=== PATIENT | female | born 1965 | race Caucasian/White ===

== ENCOUNTER 2019-12-06 12:14 | Emergency (ER) | payer BC ==
--- OUTSIDE RECORDS SUMMARY | 2019-12-06 12:27 | XMS REPORT | Continuity of Care Document ---
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 [phone] Medicine Problems Description No Information Available Social History Type Date Description Comments Sex Unknown Tobacco Use Start: Unknown Never Smoked Cigarettes Smoking Status Reviewed: 12/04/19 Never Smoked Cigarettes ETOH Use Occasionally consumed beer in the past ETOH Use Occasionally consumed liquor in the past Tobacco Use Start: Unknown Patient has never smoked Recreational Drug Use Never Used Drugs Exercise Type/Frequency Exercises regularly Walking Allergies, Adverse Reactions, Alerts Active Allergies Reaction Severity Comments Date 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00 lb Heart Rate 84 /min BP Systolic 132 mmHg BP Diastolic 88 mmHg O2 % BldC Oximetry 99 % BMI (Body Mass Index) 44.4 kg/m2 Neck Circumference in inches 18.25 11/06/2019 1:38pm Height 65 inches 5'5" Weight 267.75 lb shoes Heart Rate 60 /min BP Systolic 126 mmHg LA BP Diastolic 80 mmHg LA BP Systolic Sitting 118 mmHg Ra BP Diastolic Sitting 80 mmHg Ra BP Systolic Standing 110 mmHg Ra BP Diastolic Standing 76 mmHg Ra BMI (Body Mass Index) 44.6 kg/m2 Ejection Fraction NONE Results Description No Information Available Procedures Date Code Description Status 11/19/2019 90205 ECHO Transthoracic, Real-Time 2D With Doppler And Color Completed Flow 11/19/2019 92028 ECHO Transthoracic, Real-Time 2D With Doppler And Color Completed Flow 11/06/2019 09330 EKG Tracing & Interpretation Completed Medical Devices Description No Information Available Encounters Type Date Location Provider Dx Diagnosis Office Visit 12/04/2019 [facility] G47.33 Obstructive sleep 8:[facility]a [facility] Lis[facility] 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 tachycardia R00.2 Palpitations Assessments Date Code Description Provider 12/04/2019 G47.33 Obstructive sleep apnea (adult) (pediatric) Peg Childers MD 11/19/2019 I47.1 Supraventricular tachycardia Jordon Miranda M.D. 11/19/2019 I47.1 Supraventricular tachycardia Traveling ECHO 1 11/06/2019 I47.1 Paroxysmal supraventricular tachycardia Jordon Miranda M.D. 11/06/2019 R00.2 Palpitations Jordon Miranda M.D. Plan of Treatment 12/04/2019 - Peg Childers MDG47.33 Obstructive sleep apnea (adult) (pediatric )Follow up:3 months Functional Status Description No Information Available Mental Status Description No Information Available Referrals Description No Information Available
--- OUTSIDE RECORDS SUMMARY | 2019-12-06 12:27 | XMS REPORT | Summary of Care ---
:1965 Author Organization [facility] Address [address] [address] Care Team Providers Name Role Phone Malini Terrell MD Primary Care Provider Reason for Referral Refer to Department Only (Routine) Status Reason Specialty Diagnoses / Referred By Referred To Procedures Contact Contact Pending Review Physical Therapy Diagnoses S/P left knee arthroscopy Maylin Barr RPA-C [address] [facility] [place] [address] [place] [address] Reason for Visit Reason Comments Surgical Followup LKS Encounter Details Date Type Department Care Team Description 11/12/2019 Office Visit [facility] - Maylin Barr, S/P left knee [place] RPA-C arthroscopy (Primary [address] [facility] [address] [facility] Dx) [place] [address] [place] [address] [phone] Allergies Active Allergy Reactions Severity Noted Date Comments Latex Rash 10/15/2019 Sulfa Antibiotics Hives 09/17/2019 documented as of this encounter (statuses as of 11/12/2019) Medications Medication Sig Dispensed Refills Start Date End Date Status levothyroxine Take by mouth 0 Active (SYNTHROID) 137 MCG Oral BEFORE Tab BREAKFAST. Aspirin (SB LOW DOSE ASA Take by mouth. 0 Active EC) 81 MG Oral Tab EC pantoprazole (PROTONIX) Take 20 mg by 0 Active 20 MG Oral Tab EC mouth DAILY. Multiple Take by mouth. 0 Active Vitamins-Minerals (MULTIVITAMIN ADULT PO) citalopram (CELEXA) 20 Take 20 mg by 0 Active MG Oral Tab mouth. Acetaminophen (TYLENOL Take by mouth. 0 Active ARTHRITIS PAIN PO) Nerve Stimulator (CLEVER by Does not 0 Active CHOICE TENS UNIT) Does apply route. not apply Device HYDROcodone-acetaminophe Take 1 Tab by 16 Tab 0 10/15/2019 Active n (NORCO) 5-325 MG Oral mouth EVERY SIX Tab HOURS NEEDED (pain). Max Daily Amount: 4 Tabs. documented as of this encounter (statuses as of 11/12/2019) Active Problems Problem Noted Date S/P left knee arthroscopy 11/12/2019 Traumatic tear of medial meniscus of left knee 10/07/2019 Overview: Added automatically from request for surgery [id number] documented as of this encounter (statuses as of 11/12/2019) Social History Tobacco Use Types Packs/Day Years Used Date Never Smoker Smokeless Tobacco: Never Used Sex Assigned at Date Recorded Not on file Job Start Date Occupation Industry Not on file Not on file Not on file Travel History Travel Start Travel End No recent travel history available. documented as of this encounter Last Filed Vital Signs Vital Sign Reading Time Taken Comments Blood Pressure 119/81 11/12/2019 1:42 PM EST Pulse - - Temperature - - Respiratory Rate 16 11/12/2019 1:42 PM EST Oxygen Saturation - - Inhaled Oxygen Concentration - - Weight 121.6 kg (268 lb) 11/12/2019 1:42 PM EST Height 165.1 cm (5' 5") 11/12/2019 1:42 PM EST Body Mass Index 44.6 11/12/2019 1:42 PM EST documented in this encounter Progress Notes Maylin Barr, STEVIE-C - 11/12/2019 2:00 PM EST Name: Criss Dunne : 1965 Date of Service: 11/12/2019 CHIEF COMPLAINT: Chief Complaint Patient presents with Surgical Followup LKS HPI: Criss Dunne is a 54-y.o. female who presents to the office today for 1st postop s/p left knee arthroscopy that was done by Dr. Traylor. States doing well. Had to go to the ER for tightness in her thigh.Did a doppler And it showed A superficial thrombus.. PHYSICAL EXAM: BP 119/81 Resp 16 Ht 5' 5" (1.651 m) Wt 268 lb (121.6 kg) BMI 44.6 kg/m2 On exam the left knee incisions are healing well. Sutures were removed and steri -strips were applied. She has 0 degree extension and 100 degree of flexion. The calf is soft and non tender to palpation. Negative hohmans. NV intact to the left lower extremity. She is moving the ankle without difficulty. She is walking with an antalgic gait. ASSESSMENT: ICD-9-CM ICD-10-CM 1. S/P left knee arthroscopy V45.89 Z98.890 REFER TO PHYSICAL THERAPY / REHAB PLAN: Patient was given a referral for physical therapy and home exercise program. Patient will follow up in 2 weeks for reevaluation. Patient will not return to work Author: TANK Oliver 11/12/2019 14:12 documented in this encounter Plan of Treatment Date Type Specialty Care Team Description 11/26/2019 Office Visit Orthopedics Maylin Barr RPA-C [address] [place] [address] [phone] Name Type Priority Associated Diagnoses Order Schedule REFER TO PHYSICAL Referral Routine S/P left knee 99 Occurrences starting THERAPY / REHAB arthroscopy 11/12/2019 until 11/12/2020 Health Maintenance Due Date Last Done Comments DTaP/Tdap/Td Vaccines (1 - Tdap) 1976 DEPRESSION SCREENING 1977 HIV SCREENING 1980 DIABETES SCREENING 1983 LIPID DISORDER SCREENING 1983 PAP SMEAR 1986 HEPATITIS C SCREENING 2005 MAMMOGRAM (SCREENING) 2005 Colonoscopy 2015 ZOSTER IMMUNIZATION SERIES (1 of 2) 2015 INFLUENZA VACCINE (#1) 2019 HEPATITIS A IMMUNIZATION SERIES Aged Out No longer eligible based on patient's age to complete this topic HPV IMMUNIZATION SERIES Aged Out No longer eligible based on patient's age to complete this topic MENINGOCOCCAL VACCINE IMM Aged Out No longer eligible based on patient's age to complete this topic PNEUMOCOCCAL 0-64 YRS Aged Out No longer eligible based on patient's age to complete this topic documented as of this encounter Results Not on filedocumented in this encounter Visit Diagnoses Diagnosis S/P left knee arthroscopy Other postprocedural status documented in this encounter Insurance Payer Benefit Plan / Subscriber ID Effective Dates Phone Address Type Group CHERIE THORNE xxxxxxxxxxxx 2019-Present [employer]rie M[employer]A PPO documented as of this encounter
--- OUTSIDE RECORDS SUMMARY | 2019-12-06 12:27 | XMS REPORT | Summary of Care ---
:1965 Author Organization [facility] Address [address] [address] Care Team Providers Name Role Phone Malini Terrell MD Primary Care Provider Reason for Visit Reason Comments Post-op Follow-up 2 wk f/u left knee EUA 10-30-19. Patient states her left knee is doing great. Patient is doing PT at home and on the treadmill twice a day. Patient is ready to go back to work. Encounter Details Date Type Department Care Team Description 12/02/2019 Office Visit [facility] - El Traylor MD S/P arthroscopic [place] [address] [facility] partial medial [address] [facility] [address] meniscectomy ([place] [address] [place] [address] Dx) [place] [address] [phone] Allergies Active Allergy Reactions Severity Noted Date Comments Latex Rash 10/15/2019 Sulfa Antibiotics Hives 09/17/2019 documented as of this encounter (statuses as of 12/02/2019) Medications Medication Sig Dispensed Refills Start Date [...] as of this encounter (statuses as of 12/02/2019) Active Problems Problem Noted Date S/P left knee arthroscopy 11/12/2019 Traumatic tear of medial meniscus of left knee 10/07/2019 Overview: Added automatically from request for surgery [id number] documented as of this encounter (statuses as of 12/02/2019) Social History Tobacco Use Types Packs/Day Years Used Date Never Smoker Smokeless Tobacco: Never Used Sex Assigned at Date Recorded Not on file documented as of this encounter Last Filed Vital Signs Vital Sign Reading Time Taken Comments Blood Pressure 114/66 12/02/2019 1:12 PM EST Pulse 84 12/02/2019 1:12 PM EST Temperature - - Respiratory Rate - - Oxygen Saturation - - Inhaled Oxygen Concentration - - Weight 121.6 kg (268 lb) 12/02/2019 1:12 PM EST Height 165.1 cm (5' 5") 12/02/2019 1:12 PM EST Body Mass Index 44.6 12/02/2019 1:12 PM EST documented in this encounter Progress Notes El Traylor MD - 12/02/2019 1:30 PM ESTName: Criss Dunne : 1965 Date of Service: 12/02/2019 No chief complaint on file. History of Present Illness: Criss Dunne is a 54-y.o. female. The above is noted. Patient is in today for follow-up status post left knee arthroscopy performed on 10/30/2019. Patient is doing very well. Patient states that she is regular activities without restriction. Physical Examination: There were no vitals taken for this visit. Well-developed well-nourished female in minimal discomfort at rest. Patient's left knee was examined patient has minimal effusion. Patient has range of motion: Extension 0 degrees flexion 110 degrees. Patient is neurovascularly intact. Arthroscopic portal sites are well-healed. Impression: Status post left knee partial medial meniscectomy Plan: Doing very well, able to return to work, follow-up on PRN basis All questions were answered. There are no Patient Instructions on file for this visit. Author: El Traylor MD 12/02/2019 13:11 documented in this encounter Plan of Treatment Health Maintenance Due Date Last Done Comments [...] in this encounter Visit Diagnoses Diagnosis S/P arthroscopic partial medial meniscectomy documented in this encounter Insurance Payer Benefit Plan / Subscriber ID Effective Dates Phone Address Type Group CHERIE THORNE [id number] 2019-Present [employer]rie M[employer]A PPO documented as of this encounter
--- OUTSIDE RECORDS SUMMARY | 2019-12-06 12:27 | XMS REPORT | Summary of Care ---
:1965 Author Organization [facility] Address [address] [place] [address] Care Team Providers Name Role Phone Jackie Vera MD Primary Care Provider Reason for Referral Diagnostic Radiology (Routine) Status Reason Specialty Diagnoses / Procedures Referred By Contact Referred To Contact Open Diagnoses Varicose veins of both lower extremities with pain Amber Hoffman MD Procedures US Doppler Lower Extremity Unilateral Venous Ltd [address] [facility] Room [address] [place] [id number] Email: [email or web address] Reason for Visit Reason Comments Varicose Veins Encounter Details Date Type Department Care Team Description 11/12/2019 Office Visit [facility] Vascular Amber Hoffman MD Varicose veins of both [facility] [address] [facility] lower extremities with [place] [facility] pain (Primary Dx) [id number] [place] [address] [phone] Allergies Active Allergy Reactions Severity Noted Date Comments Latex Rash Low 10/15/2019 Sulfa Antibiotics 09/24/2019 documented as of this encounter (statuses as of 11/12/2019) Medications Medication Sig Dispensed Refills Start Date End Date Status Citalopram Take 20 mg by mouth 0 Active Hydrobromide 20 MG daily Oral Tablet (CELEXA) Levothyroxine Take 125 mcg by mouth 0 Active Sodium 125 MCG Oral Daily Tablet (SYNTHROID, LEVOTHROID) Pantoprazole Sodium Take 20 mg by mouth 0 Active 20 MG Oral Tablet daily Delayed Release (PROTONIX) Vitamin D3 25 MCG Take 2,000 Units by 0 Active (1000 UT) Oral mouth daily Tablet (CHOLECALCIFEROL) Aspirin 81 MG Oral Take by mouth 0 Active Tablet Delayed Release Flaxseed Oil Oil by Does not apply 0 Active route Boswellia Bhargavi Take by mouth 0 Active (BOSWELLIA PO) [facility] [place]. Devices Use as directed. Thigh 2 each 4 11/12/2019 Active (DURABLE MEDICAL High support stocking EQUIPMENT SEE SIG) 20-30 mm Hg Dx: XX MISC thrombophlebitis documented as of this encounter (statuses as of 11/12/2019) Active Problems No known active problemsdocumented as of this encounter (statuses as of 2019) Social History Tobacco Use Types Packs/Day Years Used Date Never Smoker Smokeless Tobacco: Never Used Alcohol Use Drinks/Week oz/Week Comments Yes Sex Assigned at Date Recorded Not on file Job Start Date Occupation Industry Not on file Not on file Not on file Travel History Travel Start Travel End No recent travel history available. documented as of this encounter Last Filed Vital Signs Vital Sign Reading Time Taken Comments Blood Pressure 113/72 11/12/2019 9:40 AM EST Pulse 73 11/12/2019 9:40 AM EST Temperature - - Respiratory Rate - - Oxygen Saturation - - Inhaled Oxygen Concentration - - Weight 121.1 kg (267 lb) 11/12/2019 9:38 AM EST Height 165.1 cm (5' 5") 11/12/2019 9:38 AM EST Body Mass Index 44.43 11/12/2019 9:38 AM EST documented in this encounter Patient Instructions Patient InstructionsShAmber hinojosa MD - 11/12/2019 9:00 AM EST Varicose Veins Varicose veins are swollen, enlarged veins most often found in the legs. They are usually blue orpurple in color and may bulge, twist, and stand out under the skin. Normally, veins return blood from the body to the heart. The leg veins have one- way valves that prevent blood from flowing backward in the vein. When the valves are weak or damaged, blood backs up in the veins. This may cause some of the veins to swell and bulge and become varicose veins. Symptoms Varicose veins may or may not cause symptoms. If symptoms do occur, they can include: Legs that feel tired, achy, heavy, or itchy Leg muscle cramps Skin changes, such as discoloration, dryness, redness, or rash (in more severe cases, you may also have sores on the skin called venous leg ulcers) Risk factors There are a number of factors that increase the risk for varicose veins. These can include: Being a woman Being older Sitting or standing for long periods Being overweight Being Having a family history of varicose veins Treatment starts with simple self-help measures (see below). If these don t help, there are many procedures that can be done to shrink or remove varicose veins.Your healthcare provider can tell you more about these options, if needed. Home care Support or compression stockings will likely be prescribed. If so, be sure to wear them as directed. They may help improve blood flow. Exercising helps strengthen your leg muscles and improve blood flow. To get the most benefit, choose exercises such as walking, swimming, or cycling. Also try to exercise for at least 30 minutes on most days. Raising (elevating) your legs lets gravity help blood flow back to the heart. Sit or lie with your feet above heart level a few times throughout the day, or as directed. Don't sit or stand for long periods. Change positions often.Also, move your ankles, toes and knees often.This may also help improve blood flow. If you are overweight, talk with your healthcare provider about setting up a weight-loss plan.Maintaining a healthy weight can help reduce the strain on your veins. It may also improve symptoms, such as swelling and aching. If you have dryness and itching, ask your provider about special lotions that can be applied tothe skin to help improve symptoms. Follow-up care Follow up with your healthcare provider, or as directed.If imaging tests were done, youll be told the results and if there are any new findings that affect your care. When to seek medical advice Call your healthcare provider right away if any of these occur: Sudden, severe leg swelling, pain, or redness Symptoms worsen, or they dont improve with self-care Bleedingfrom any affected veins Ulcersform on the legs, ankles, or feet Fever of 100.4F (38C) or higher, or as advised by your provider Date Last Reviewed: 12/31/201719995490-8640 [employer]. [address] [place] [address], [place] [address]. All rights reserved. This information is not intended as a substitute for professional medical care. Always follow your healthcare professional's instructions. Radiofrequency Ablation (RFA) Treatment for Varicose Veins Radiofrequency ablation (RFA) is a procedure to treatvaricose veins. It uses heat created from radiofrequency (RF). Varicose veins are swollen, enlarged veins. They happen most often in the legs. Varicose veins can develop when valves in your veins become damaged. This causes problems with blood flow. Over time, toomuch blood collects in your veins. The veins may bulge, twist, and stand out under your skin. They can also cause symptoms such as aching, cramping, or swelling in your legs. During RFA treatment, RF heat is sent into your vein through a thin, flexible tube (catheter). This closes off blood flow in the main problem vein. With RFA treatment, a catheter that contains RF heat is used to seal off the main problem vein. Getting readyfor your treatment Follow any instructions from your healthcare provider. Tell your provider if you: Are or think you may be Are Smoke or use alcohol on a regular basis Have any allergies or intolerances to certain medicines. Explain what reaction you have had to these medicines in the past. Tell your provider about any medicines you are taking. You may need to stop taking all or some of these before the test. This includes: Medicines that can thin your blood or prevent clotting (anticoagulants) All prescription medicines Pnvy-zec-yhqyuwb medicines such as aspirin or ibuprofen Street drugs Herbs, vitamins, and other supplements Follow any directions youre given for not eating or drinking before the procedure. The day of your treatment The treatment takes 45 to 60 minutes. The entire treatment (including time to prepare and recover) takes about 1 to 3 hours.You can go home the same day. For the treatment: Youll lie down on a hospital bed. An imaging method, such as ultrasound, is used to guide the procedure. The leg to be treated is injected with numbing medicine. Once your leg is numb, a needle makes a small hole (puncture) inthe vein to be treated. The catheter with the RF heat source is inserted into your vein. More numbing medicine may be injected around your vein. Once the catheter is in the right position, it is then slowly drawn backward. As the catheter sends out heat, the vein is closed off. In some cases, other side branch varicose veins may be removed or tied off through a few small cuts (incisions). When the treatment is done, the catheter is removed. Pressure is applied to the insertion site to stop any bleeding. An elastic compression stocking or a bandage may then be put on your leg. Recovering at home Once at home, follow all the instructions youve been given. Be sure to: Take all medicines as directed Care for the catheter insertion site as directed Check for signs of infection at the catheter insertion site (see below) Wear elastic stockings or bandages as directed Keep your legs raised (elevated) as directed Walk a few times a day Avoid heavy exercise, lifting, and standing for long periods as advised Avoid air travel, hot baths, saunas, or whirlpools as advised Call your healthcare provider Call your healthcare provider if you have any of the following: Fever of 100.4F (38C) or higher, or as directed by your provider Chest pain or trouble breathing Signs of infection at the catheter insertion site. These include increased redness or swelling (inflammation), warmth, increasing pain, bleeding , or bad-smelling discharge. Severe numbness or tingling in the treated leg Severe pain or swelling in the treated leg Follow-up Youll have a follow-up visit with your healthcare provider within a week. An ultrasound will be done to check for problems, such as blood clots. Your provider will discuss further treatments with you, if needed. Risks and possible complications These include the following: Bleeding Infection Blood clots Damage to the nerves in the treated area Irritation or burning of the skin over the treated vein Treatmentdoesn't improve thelook or the symptoms of the problem veins Risks of any medicines used during the treatment Date Last Reviewed: 01/31/201619990842-0726 [employer]. [address] [place] [address]. All rights reserved. This information is not intended as a substitute for professional medical care. Always follow your healthcare professional's instructions. Surgery for Varicose Veins If you have large varicose veins, surgery may be the best choice. However, it will not prevent new varicose veins from forming. Surgery is most often performed in a hospital or surgery center on an outpatient basis. Varicose vein surgery Your surgery will be tailored to your needs. Varicose veins may be tied off ( ligation), destroyed,or removed. Blood will then flow through the healthy veins. One or more of the following techniquesmay be used: Vein stripping and ligation In more severe cases, the surgeon may tie off and remove veins by making smaller cuts in the skin. Smaller branching veins may also be tied off or removed. Microphlebectomy or ambulatory phlebectomy A special hook is used to gently take out a varicose vein through tiny incisions. Microphlebectomy may be done in your healthcare providers office. Sclerotherapy Your healthcare provider will inject the varicose vein with a special chemical that will quickly close the vein from the inside. This is particularly useful for smaller veins. PIN stripping All or part of the vein may be removed with a stripping instrument. Ablation (laser or radiofrequency) A tiny cut in the skin is made near the varicose vein. A small tube called a catheter is inserted into the vein. Energy or heat released from the catheter tip will make the vein leahy collapse and stick together, stopping all blood flow through the vein. Know about the risks Your healthcare provider will talk with you about the risks of surgery. These include: Bleeding or swelling A sense of numbness, burning, or tingling in areas near the procedure Edema or swelling in the legs Clots in the deep veins that may travel to the lungs Infection Scarring Date Last Reviewed: 01/31/201619999793-8355 [employer] [address] [place] [address]. All rights reserved. This information is not intended as a substitute for professional medical care. Always follow your healthcare professional's instructions. documented in this encounter Progress Notes Amber Hoffman MD - 11/12/2019 9:00 AM EST Subjective: Patient ID: Criss Dunne is a 54 y.o. female with past medical history of Gastroesophageal reflux disease, Hyperthyroidism, Seasonal affective disorder, and Sleep apnea referred for evaluation of LEFT LE varicose veins. She has had 2 episodes of SVT. She had recent meniscus surgery 10-30-19. She had developed pain over hier thigh and required an US to r/o DVT at [facility] which was negative. She has used knee high stockings but really needs thigh high considering that her SVT has developed over the thigh. Prior to her left meniscus injury she could walk as far as she wants. Chief Complaint: HPI Criss has hx SVT Criss does not have a problem list on file. Criss has a past surgical history that includes Appendectomy; Tonsillectomy; Cholecystectomy; Hysterectomy; and section. Her family history includes Cancer in her sister; Diabetes in her mother and sister; Heart disease in her father. Criss reports that she has never smoked. She has never used smokeless tobacco. She reports current alcohol use. She reports that she does not use drugs. Criss has a current medication list which includes the following prescription(s) : aspirin, boswelliaserrata, citalopram, flaxseed oil, levothyroxine, pantoprazole, and vitamin d3. Current Outpatient Medications on File Prior to Visit Medication Sig Dispense Refill Aspirin 81 MG Oral Tablet Delayed Release Take by mouth Boswellia Bhargavi (BOSWELLIA PO) Take by mouth Citalopram Hydrobromide 20 MG Oral Tablet (CELEXA) Take 20 mg by mouth daily Flaxseed Oil Oil by Does not apply route Levothyroxine Sodium 125 MCG Oral Tablet (SYNTHROID, LEVOTHROID) Take 125 mcg by mouth Daily Pantoprazole Sodium 20 MG Oral Tablet Delayed Release (PROTONIX) Take 20 mg by mouth daily Vitamin D3 25 MCG (1000 UT) Oral Tablet (CHOLECALCIFEROL) Take 2,000 Units by mouth daily No current facility-administered medications on file prior to visit. Criss is allergic to sulfa antibiotics and latex. Review of Systems All other systems reviewed and are negative. Objective: Physical Exam Constitutional: She appears well-nourished. HENT: Head: Normocephalic and atraumatic. Eyes: Pupils are equal, round, and reactive to light. Conjunctivae are normal. Neck: Normal range of motion. Neck supple. Cardiovascular: Normal rate, regular rhythm and intact distal pulses. Pulmonary/Chest: Effort normal. Abdominal: Soft. Musculoskeletal: Normal range of motion. General: Edema present. Neurological: She is alert. Skin: Skin is warm. 5-6 mm varices over left anterior thigh with area of SVT and redness (see photo) . Spider veins overlower leg. Psychiatric: She has a normal mood and affect. Her behavior is normal. Judgment and thought content normal. Vitals reviewed. Left leg Lab Review: 11/09/19 LLE venous duplex neg for DVT. Popliteal cyst Assessment: 1. Varicose veins of both lower extremities with pain Plan: Left leg venous reflux study at [facility]. Compression stockings - 20-30 mmHg Weight loss, exercise (limited now with the recent knee surgery), anti- inflammatories heating pad tothe SVT, leg elevation Pain from SVT limits her as well. I'll see her back in 2 months.Electronically signed by Amber Hoffman MD at 11/12 11:43 AM ESTdocumented in this encounter Plan of Treatment Date Type Specialty Care Team Description 01/17/2020 Office Visit Vascular Surgery Amy Castro, RECOVERY SPECIALIST [address] [place] [address] [phone] Name Type Priority Associated Diagnoses Order Schedule US Doppler Lower Imaging Routine Varicose veins of both Expected: 2019, Extremity Unilateral lower extremities with Expires: 02/10/2020 Venous Ltd pain Health Maintenance Due Date Last Done Comments Hepatitis C Screening (B. 1965 [id number]) MMR Vaccines (1 of 1 - Standard 1966 series) Varicella Vaccines (1 of 2 - 1966 2-dose childhood series) DTaP,Tdap,and Td Vaccines (1 - 1972 Tdap) HIV Screening 1978 Cervical Cancer Screening 5 years 1986 Breast Cancer Screening 2 years 2015 Colon Cancer Screening 10 yrs 2015 Influenza Vaccine 07/02/2019 Pneumococcal Vaccine: 65+ Years (1 2030 of 2 - PCV13) HIB Vaccines Aged Out No longer eligible based on patient's age to complete this topic Hepatitis A Vaccines Aged Out No longer eligible based on patient's age to complete this topic Hepatitis B Vaccines Aged Out No longer eligible based on patient's age to complete this topic IPV Vaccines Aged Out No longer eligible based on patient's age to complete this topic Pneumococcal Vaccine: Pediatrics Aged Out No longer eligible based on (0 to 5 Years) and At-Risk patient's age to complete this Patients (6 to 64 Years) topic documented as of this encounter Results Not on filedocumented in this encounter Visit Diagnoses Diagnosis Varicose veins of both lower extremities with pain - Primary Varicose veins of lower extremities with other complications documented in this encounter
[2019-12-06 13:47] LABS: ABS Basophils 0.1 10^3/ul (0-0.2); ABS Eosinophils 0.4 10^3/ul (0-0.6); ABS Lymphocytes 3.6 10^3/ul (1.0-4.8); ABS Monocytes 0.8 10^3/ul (0-0.8); ABS Neutrophils 5.8 10^3/ul (1.5-7.7); Eosinophil % 3.5 %; Hematocrit 38 % (35-47); Hemoglobin 12.5 g/dL (12.0-16.0); Lymphocyte % 33.6 %; Mean Corpuscular HGB Conc 33 g/dL (31-36); Mean Corpuscular Hemoglobin 26 pg (27-31); Mean Corpuscular Volume 77 fL (80-97); Mean Platelet Volume 9.7 fL (7.4-10.4); Nucleated Red Blood Cells % 0.1; Platelet Count 270 10^3/uL (150-450); Red Blood Count 4.92 10^6 /uL (3.70-4.87); Red Cell Distribution Width 15 % (10-15); White Blood Count 10.6 10^3/uL (3.5-10.8)
[2019-12-06 13:53] LABS: INR 1.04 (0.82-1.09)
[2019-12-06 14:08] LABS: Albumin 4.1 g/dL (3.2-5.2); Albumin/Globulin Ratio 1.6 (1-3); BUN/Creatinine Ratio 22.9 (8-20); Calcium 9.9 mg/dL (8.6-10.3); EGFR African American 86.7 (>60); EGFR Non-African American 71.6 (>60); Globulin 2.5 g/dL (2-4); Potassium 4.1 mmol/L (3.5-5.0); Total Bilirubin 0.3 mg/dL (0.2-1.0); Total Protein 6.6 g/dL (6.4-8.9)
[2019-12-06 14:33] VITALS: BP 151/86
--- NOTE | 2019-12-07 07:34 | ED ---
Lower Extremity - HPI Summary HPI Summary: This patient is a 54-year-old female with history of varicose veins, recent upper left leg superficial venous thrombosis presenting to the ED after an ultrasound this morning showed a positive DVT in the left leg. Per Dr. Hoffman's office, patient was sent to the ED for further evaluation. Pt has been endorsing pain to the left lower extremity for approximately 6 months, however has worsened recently. She also has endorsed swelling. No erythema. No fevers. She did have a positive SVT last year and has been taking 4 baby aspirin since that time. She denies any clotting disorders. She takes no other blood thinners. She denies any kidney dysfunction. Patient states she is feeling otherwise well. Remains ambulatory. Minimal discomfort in the left lower extremity at this time. Denies any shortness of breath, chest pain. No history of DVT or PE in the past. - History of Current Complaint Chief Complaint: EDExtremityLower Stated Complaint: DVT PER PT Time Seen by Provider: 12/06/19 13:01 Hx Obtained From: Patient Onset/Duration: Still Present Severity Initially: Mild Severity Currently: Mild Pain Intensity: 3 Pain Scale Used: 0-10 Numeric Location: Is Discrete @ - left lower ext swelling and pain x 6 mos Associated Signs And Symptoms: Positive: Swelling. Negative: Redness, Bruising , Fever, Weakness Aggravating Factor(s): Standing, Ambulation Alleviating Factor(s): Rest Able to Bear Weight: Yes - Allergies/Home Medications Allergies/Adverse Reactions: Allergies Allergy/AdvReac Type Severity Reaction Status Date / Time Sulfa (Sulfonamide Allergy Intermediate Rash Verified 12/06/19 13:40 Antibiotics) Home Medications: Home Medications Levothyroxine TAB* [Synthroid TAB*] 137 mcg PO DAILY 12/06/19 [History Confirmed 12/06/19] Pantoprazole TAB * [Protonix TAB*] 20 mg PO DAILY 12/06/19 [History Confirmed ] Rivaroxaban TAB(*) [Xarelto 15 mg(*)] 15 mg PO DAILY #42 tab 12/06/19 [Rx] PMH/Surg Hx/FS Hx/Imm Hx Previously Healthy: Yes Endocrine/Hematology History: Reports: Hx Thyroid Disease - HYPO Denies: Hx Diabetes Cardiovascular History: Denies: Hx Congestive Heart Failure, Hx Hypertension Respiratory History: Reports: Hx Asthma - Surgical History Surgery Procedure, Year, and Place: hysterectomy, gallbladder, appy, tonsils and adenoids - Immunization History Hx Pertussis Vaccination: No Immunizations Up to Date: Yes Infectious Disease History: No Infectious Disease History: Denies: Traveled Outside the [place] in Last 30 Days - Family History Known Family History: Positive: Non-Contributory - Social History Occupation: Employed Full-time Lives: With Family Alcohol Use: Occasionally Alcohol Amount: 2-3 drinks monthly Hx Substance Use: No Substance Use Type: Reports: None Smoking Status (MU): Never Smoked Tobacco Review of Systems Negative: Fever, Chills, Fatigue, Skin Diaphoresis Negative: Palpitations, Chest Pain Negative: Shortness Of Breath, Cough Positive: Edema, Other - left lower ext swelling and pain Negative: Rash, Bruising Neurological/Mental Status: Negative All Other Systems Reviewed And Are Negative: Yes Physical Exam Triage Information Reviewed: Yes Vital Signs On Initial Exam: Initial Vitals Temp Pulse Resp BP Pulse Ox 97.5 F 70 16 130/76 98 12/06/19 12:17 12/06/19 12:17 12/06/19 12:17 12/06/19 12:17 12/06/19 12:17 Vital Signs Reviewed: Yes Appearance: Positive: Well-Appearing, Well-Nourished Skin: Positive: Warm, Skin Color Reflects Adequate Perfusion Head/Face: Positive: Normal Head/Face Inspection Eyes: Positive: EOMI, JADE, Conjunctiva Clear Neck: Positive: Supple, No Lymphadenopathy Respiratory/Lung Sounds: Positive: Clear to Auscultation, Breath Sounds Present Cardiovascular: Positive: RRR, Pulses are Symmetrical in both Upper and Lower Extremities Musculoskeletal: Positive: Normal, Strength/ROM Intact Neurological: Positive: Speech Normal Psychiatric: Positive: Normal, Affect/Mood Appropriate AVPU Assessment: Alert Procedures - Sedation Patient Received Moderate/Deep Sedation with Procedure: No Diagnostics - Vital Signs Vital Signs Temp Pulse Resp BP Pulse Ox 12/06/19 14:32 98.4 F 72 14 151/86 98 12/06/19 12:17 97.5 F 70 16 130/76 98 - Laboratory Lab Results: Lab Results 12/06/19 12/06/19 12/06/19 Range/Units 13:37 13:37 13:37 WBC 10.6 (3.5-10.8) 10^3/uL RBC 4.92 H (3.70-4.87) 10^6 /uL Hgb 12.5 (12.0-16.0) g/dL Hct 38 (35-47) % MCV 77 L (80-97) fL MCH 26 L (27-31) pg MCHC 33 (31-36) g/dL RDW 15 (10-15) % Plt Count 270 (150-450) 10^3/uL MPV 9.7 (7.4-10.4) fL Neut % (Auto) 54.6 % Lymph % (Auto) 33.6 % Cotton % (Auto) 7.2 % Eos % (Auto) 3.5 % Baso % (Auto) 1.1 % Absolute Neuts (auto) 5.8 (1.5-7.7) 10^3/ul Absolute Lymphs (auto) 3.6 (1.0-4.8) 10^3/ul Absolute Monos (auto) 0.8 (0-0.8) 10^3/ul Absolute Eos (auto) 0.4 (0-0.6) 10^3/ul Absolute Basos (auto) 0.1 (0-0.2) 10^3/ul Absolute Nucleated RBC 0.0 10^3/ul Nucleated RBC % 0.1 INR (Anticoag Therapy) 1.04 (0.82-1.09) Sodium 139 (135-145) mmol/L Potassium 4.1 (3.5-5.0) mmol/L Chloride 105 (101-111) mmol/L Carbon Dioxide 26 (22-32) mmol/L Anion Gap 8 (2-11) mmol/L BUN 19 (6-24) mg/dL Creatinine 0.83 (0.51-0.95) mg/dL Est GFR ( Amer) 86.7 (>60) Est GFR (Non-Af Amer) 71.6 (>60) BUN/Creatinine Ratio 22.9 H (8-20) Glucose 92 (70-100) mg/dL Calcium 9.9 (8.6-10.3) mg/dL Total Bilirubin 0.30 (0.2-1.0) mg/dL AST 21 (13-39) U/L ALT 20 (7-52) U/L Alkaline Phosphatase 64 (34-104) U/L Total Protein 6.6 (6.4-8.9) g/dL Albumin 4.1 (3.2-5.2) g/dL Globulin 2.5 (2-4) g/dL Albumin/Globulin Ratio 1.6 (1-3) Result Diagrams: 12/06/19 13:37 12/06/19 13:37 Lab Statement: Any lab studies that have been ordered have been reviewed, and results considered in the medical decision making process. Lower Extremity Course/Dx - Course Course Of Treatment: Ultrasound shows probable occlusive thrombus of the calf veins without extension to or above the popliteal vein. Popliteal fossa cyst. Labs obtained which show no evidence of kidney dysfunction. INR WNL. Patient is initiated on zarelto at 15mg twice daily x 21 days. Will f/u with Dr. Hoffman within 3 weeks to obtain further dosing if required. - Diagnoses Differential Diagnosis/HQI/PQRI: Positive: Other - DVT, varicose veins, leg swelling Provider Diagnoses: DVT (deep venous thrombosis) Discharge ED - Sign-Out/Discharge Documenting (check all that apply): Patient Departure - Discharge Plan Condition: Stable Disposition: HOME Prescriptions: Rivaroxaban TAB(*) [Xarelto 15 mg(*)] 15 mg PO DAILY #42 tab Patient Education Materials: Rivaroxaban (By mouth), Deep Vein Thrombosis (ED) Referrals: Malini Terrell MD [Primary Care Provider] - Additional Instructions: Please follow up with PCP within 3 weeks time - Billing Disposition and Condition Condition: STABLE Disposition: Home
== END 2019-12-06 14:32 | disposition home or self-care (01) ==
LOC: ED 12:14
DX: I82.402 Acute embolism and thrombosis of unspecified deep veins of left lower extremity (principal); M71.22 Synovial cyst of popliteal space [Baker], left knee; E03.9 Hypothyroidism, unspecified; Z79.01 Long term (current) use of anticoagulants; Z79.899 Other long term (current) drug therapy; Z88.2 Allergy status to sulfonamides
CPT/HCPCS: 36415; 80053; 85025; 85610; 99282

== ENCOUNTER 2024-01-23 06:07 | Inpatient (IN) ==
[~2024-01-23 06:07] MED LIST: Naloxone 0.4 mg VIAL 0.4 mg/ml 1 ml VIAL IV PRN; fentaNYL 100 mcg/2 ml 50 MCG/ML VIAL IV PRN
[2024-01-23] MEDS: Buffered Lidocaine 1% SYRIN 1 ml INTRADERM ONE (06:20)
[2024-01-23] MEDS ORDERED: Heparin 5000 UNITS/ML 1 mL VIAL ONE (06:22)
[2024-01-23] MEDS ORDERED: Scopolamine 1 mg/72hr PATCH ONE (06:22)
[2024-01-23] MEDS ORDERED: ceFAZolin 2 GM PREMIX 2 GM/50 ML BAG ONE (06:23)
[2024-01-23] MEDS: Lactated Ringers 1000 ml BAG 1,000 ML IV SCH ×2 (06:47→14:17)
[2024-01-23] MEDS: Scopolamine 1 mg/72hr PATCH TRANSDERM ONE (06:47)
[2024-01-23 06:56] LABS: Rapid COVID-19 Molecular Undetected (Undetected)
[2024-01-23] MEDS ORDERED: Rocuronium 50 mg VIAL 10 mg/ml 5 ml VIAL (50 mg) ONE (07:07)
[2024-01-23] MEDS ORDERED: Propofol 10 MG/ML 20 ML BTL ONE (07:11)
[2024-01-23] MEDS ORDERED: Lidocaine 2% PF 5 ML VIAL ONE (07:11)
[2024-01-23] MEDS ORDERED: Midazolam 2 mg/2 ml VIAL 1 mg/ml 2 ml VIAL (2 mg) ONE (07:11)
[2024-01-23] MEDS ORDERED: fentaNYL 100 mcg/2 ml 50 MCG/ML VIAL ONE (07:11)
[2024-01-23] MEDS ORDERED: Methylene Blue 1% (ANTIDOTE) 10 MG/ML 10 ML SDV VIAL IVPB ONE (07:20)
[2024-01-23] MEDS ORDERED: Bupivacaine 0.25% EPI 200,000 30 ML SDV ONE (07:21)
[2024-01-23] MEDS ORDERED: Ondansetron 4 mg VIAL 2 MG/ML 2 ml VIAL ONE ×2 (08:16→12:05)
[2024-01-23] MEDS ORDERED: Dexamethasone IV 4 MG/ML VIAL 1 ml VIAL ONE (08:16)
[2024-01-23] MEDS ORDERED: HYDROmorphone 0.5 MG/0.5 ML SYRINGE ONE ×3 (08:17→10:08)
[2024-01-23] MEDS ORDERED: hydrALAZINE 20 mg/ml 1 ML Vial IV ONE (09:47)
[2024-01-23] MEDS ORDERED: Metoprolol Tartrate 5 mg VIAL 5 ml VIAL (1 mg/ml) ONE ×2 (10:25→10:26)
[2024-01-23] MEDS ORDERED: HYDROmorphone 1 MG/1 ML SYRINGE IV SLOW PU PRN (11:43)
[2024-01-23] MEDS ORDERED: HYDROmorphone 0.5 MG/0.5 ML SYRINGE IV SLOW PU PRN (11:43)
[2024-01-23] MEDS ORDERED: HYDROcodone/ACET. 7.5/325 LIQ 15 ML UDC PO PRN (11:43)
[2024-01-23] MEDS ORDERED: Albuterol HFA INHALER 8 gm MDI INH PRN (11:46)
[2024-01-23] MEDS ORDERED: HYDROmorphone 1 MG/1 ML SYRINGE ONE (12:05)
[2024-01-23] MEDS: Ondansetron 4 mg VIAL 2 MG/ML 2 ml VIAL IV PRN (12:07)
[2024-01-23] MEDS: HYDROmorphone 1 MG/1 ML SYRINGE IV PRN (12:24)
[2024-01-23] MEDS: Prochlorperazine 5 mg/ml 2 ml VIAL (10 mg) IV PRN (12:26)
[2024-01-23] MEDS ORDERED: Prochlorperazine 5 mg/ml 2 ml VIAL (10 mg) ONE (12:26)
[2024-01-23] MEDS: Acetaminophen IV 1 GM/100ML 1,000 MG/100 ML BAG IV PRN (15:58)
[2024-01-23] MEDS: Enoxaparin 40 MG/0.4 ML SYR SUBCUT SCH (17:38)
[2024-01-23] MEDS: Famotidine IV 10 MG/ML 2 ml VIAL (20 mg) IV SLOW PU SCH (21:38)
[2024-01-24] MEDS: D5W 1/2 NS KCl 20 meq 1000 ml 1,000 ML IV SCH (11:11)
[2024-01-24 14:15] VITALS: BP 128/65
== END 2024-01-24 17:05 | disposition home or self-care (01) | DRG 403 ==
LOC: AA 06:07 → SSU 13:36
PROVIDERS: ADMIT Surgery; ATTEND Surgery